=== PATIENT | female | born 1945 | race Caucasian/White ===

== ENCOUNTER → 2016-06-16 | Outpatient (CLI) | payer OTHER | LOC: KOH-I 15:40 | DX: M25.561 Pain in right knee (principal); M25.571 Pain in right ankle and joints of right foot; M25.861 Other specified joint disorders, right knee | CPT/HCPCS: 73564; 73610; 73630 ==

== ENCOUNTER → 2020-04-19 | Outpatient (CLI) | payer MEDICARE, OTHER ==
[~2020-04-19] MED LIST: ATORVASTATIN CA40 MG PO; BACTRIM DS TAB1 EACH PO; GLUCOPHAGE 500500 MG PO; LEVOTHYROXINE100 MC2 PO; LINZESS145 MCG PO; LOSARTAN-HCTZ1 EACH PO; MACROBID 100 M100 M1 PO; MOBIC7.5 MG PO; TOLTERODINE TART2 MG PO; TOVIAZ8 MG PO; ZOCOR20 MG PO; ZOFRAN 4 MG TAB4 MG PO
== END ==
LOC: MAMO 14:35
DX: Z53.9 Procedure and treatment not carried out, unspecified reason (principal)

== ENCOUNTER 2020-08-14 10:02 | Inpatient (IN) | payer MEDICARE ==
[~2020-08-14] VITALS: Ht 152.4 cm; Wt 94.8 kg
[2020-08-14 10:26] LABS: HEMOGLOBIN 16.5 gm/dl (12.3-15.3); RED BLOOD COUNT 5.17 M/UL (4.00-5.10); WHITE BLOOD COUNT 10.7 K/UL (4.5-11.0)
[2020-08-14 16:39] LABS: HEMOGLOBIN 15.1 gm/dl (12.3-15.3); RED BLOOD COUNT 4.72 M/UL (4.00-5.10)
[2020-08-14 16:48] LABS: WHITE BLOOD COUNT 23.3 K/UL (4.5-11.0)
[2020-08-14] MEDS ORDERED: MACROBID 100 M100 M1 PO (18:23)
[2020-08-14] MEDS ORDERED: ATORVASTATIN CA40 MG PO (18:25)
[2020-08-14] MEDS ORDERED: LEVOTHYROXINE100 MC2 PO (18:26)
[2020-08-14] MEDS ORDERED: MOBIC7.5 MG PO (18:27)
[2020-08-14] MEDS ORDERED: GLUCOPHAGE 500500 MG PO (18:27)
[2020-08-14] MEDS ORDERED: ZOFRAN 4 MG TAB4 MG PO (18:29)
[2020-08-14] MEDS ORDERED: LOSARTAN-HCTZ1 EACH PO (18:30)
[2020-08-14] MEDS ORDERED: ZOCOR20 MG PO (18:31)
[2020-08-14] MEDS ORDERED: TOLTERODINE TART2 MG PO (18:31)
[2020-08-14] MEDS ORDERED: TOVIAZ8 MG PO (18:32)
[2020-08-14] MEDS ORDERED: BACTRIM DS TAB1 EACH PO (18:34)
[2020-08-14] MEDS ORDERED: LINZESS145 MCG PO (18:34)
[2020-08-14 22:27] LABS: HEMOGLOBIN 15.6 gm/dl (12.3-15.3); RED BLOOD COUNT 4.87 M/UL (4.00-5.10)
[2020-08-15 08:56] LABS: HEMOGLOBIN 14.2 gm/dl (12.3-15.3); RED BLOOD COUNT 4.44 M/UL (4.00-5.10); WHITE BLOOD COUNT 21.2 K/UL (4.5-11.0)
[2020-08-16 05:29] LABS: HEMOGLOBIN 12.4 gm/dl (12.3-15.3); WHITE BLOOD COUNT 17.6 K/UL (4.5-11.0)
[2020-08-16 05:30] LABS: RED BLOOD COUNT 3.95 M/UL (4.00-5.10)
[2020-08-16 23:51] LABS: HEMOGLOBIN 11.5 gm/dl (12.3-15.3); RED BLOOD COUNT 3.66 M/UL (4.00-5.10); WHITE BLOOD COUNT 19.4 K/UL (4.5-11.0)
== END 2020-08-17 05:12 | disposition expired | DRG 270 ==
LOC: ER1 10:02 → CDU 10:36 → CCU 13:51
PROVIDERS: Emergency Medicine; Internal Medicine Nephrology; Internal Medicine Pulmonary Disease; ADMIT Internal Medicine Interventional Cardiology
PROC: 5A02110 Assistance with Cardiac Output using Balloon Pump, Intermittent (ICD-10-PCS; principal; 2020-08-14)
PROC: 027034Z Dilation of Coronary Artery, One Artery with Drug-eluting Intraluminal Device, Percutaneous Approach (ICD-10-PCS; 2020-08-14)
PROC: 4A023N7 Measurement of Cardiac Sampling and Pressure, Left Heart, Percutaneous Approach (ICD-10-PCS; 2020-08-14)
PROC: B2111ZZ Fluoroscopy of Multiple Coronary Arteries using Low Osmolar Contrast (ICD-10-PCS; 2020-08-14)
PROC: 5A12012 Performance of Cardiac Output, Single, Manual (ICD-10-PCS; 2020-08-14)
PROC: 3E033XZ Introduction of Vasopressor into Peripheral Vein, Percutaneous Approach (ICD-10-PCS; 2020-08-14)
PROC: 0BH17EZ Insertion of Endotracheal Airway into Trachea, Via Natural or Artificial Opening (ICD-10-PCS; 2020-08-14)
PROC: 5A1945Z Respiratory Ventilation, 24-96 Consecutive Hours (ICD-10-PCS; 2020-08-14)
PROC: 02HV33Z Insertion of Infusion Device into Superior Vena Cava, Percutaneous Approach (ICD-10-PCS; 2020-08-15)
DX: I21.09 ST elevation (STEMI) myocardial infarction involving other coronary artery of anterior wall (principal); N17.0 Acute kidney failure with tubular necrosis; J69.0 Pneumonitis due to inhalation of food and vomit; J96.01 Acute respiratory failure with hypoxia; K72.00 Acute and subacute hepatic failure without coma; E87.4 Mixed disorder of acid-base balance; I13.0 Hypertensive heart and chronic kidney disease with heart failure and stage 1 through stage 4 chronic kidney disease, or unspecified chronic kidney disease; E87.1 Hypo-osmolality and hyponatremia; Z68.41 Body mass index [BMI] 40.0-44.9, adult; R57.0 Cardiogenic shock; Z20.822 Contact with and (suspected) exposure to COVID-19; Z66 Do not resuscitate; I46.8 Cardiac arrest due to other underlying condition; M19.90 Unspecified osteoarthritis, unspecified site; E11.22 Type 2 diabetes mellitus with diabetic chronic kidney disease; I25.5 Ischemic cardiomyopathy; N14.1 Nephropathy induced by other drugs, medicaments and biological substances; E66.01 Morbid (severe) obesity due to excess calories; I50.9 Heart failure, unspecified; I08.1 Rheumatic disorders of both mitral and tricuspid valves; N18.9 Chronic kidney disease, unspecified; G89.29 Other chronic pain; Z79.4 Long term (current) use of insulin; Z90.49 Acquired absence of other specified parts of digestive tract; Z82.49 Family history of ischemic heart disease and other diseases of the circulatory system; Z88.8 Allergy status to other drugs, medicaments and biological substances; Z79.82 Long term (current) use of aspirin
CPT/HCPCS: ECHO; 31500; 36415; 36600; 71045; 74018; 80048; 80053; 80202; 81001; 82550; 82553; 82803; 82962; 83605; 83615; 83735; 83874; 83880; 84100; 84484; 85025; 85027; 85347; 85384; 85610; 85730; 86140; 87040; 87070; 87081; 87205; 92950; 92973; 93005; 93306; 94002; 94003; 94640; 94664; 94760; 99152; 99153; 99285; C1725; C1751; C1757; C1769; C1874; C1887; C9113; J0171; J0282; J0330; J0461; J1265; J1644; J1720; J1940; J2250; J2270; J2370; J2405; J2543; J2704; J3246; J3370; J3475; J3480; J7030; J7040; J7042; J7050; J7070; Q9965; U0002